=== PATIENT | female | born 1930 | race Caucasian/White ===

== ENCOUNTER 2016-12-05 21:03 | Emergency (ER) | payer MEDICARE, BC ==
[2016-12-05 21:15] VITALS: TEMP 97.4
[2016-12-05 21:23] LABS: Glucose,Whole Blood 98 mg/dL (75-99)
[2016-12-05] MEDS ORDERED: DIPH,PERTUS(ACELL)TETVAC-LF 0.5 ML VIAL IM ONE (21:31)
--- NOTE | 2016-12-05 21:37 | ED ---
Fall HPI - General Chief Complaint: Fall Stated Complaint: Fall/Head injury Time Seen by Provider: 12/05/16 21:14 Source: EMS, RN notes reviewed Mode of arrival: EMS - History of Present Illness Initial Comments: Patient is an 86-year-old woman brought to be evaluated after she had a fall. The patient reports that she was trying to do laundry and then thinks she may have tripped. She had a falling and striking the right side of her head and her right arm. The patient is denying pain. She denies dyspnea. She states that she feels well. Patient does not recall her last tetanus shot. Complaint: fall -: hour(s) Fall From: standing When Fall Occurred: 1-[address] Fall Occurred: [facility]pc/SNF Loss of Consciousness: none Prolonged Down Time?: no Symptoms Prior to Fall: none Location: head Location - Extremities: Right: Forearm Context: tripped/slipped Associated Symptoms: denies - Related Data Home Medications Medication Instructions Recorded Confirmed Unable To Assess [Unable to Assess] 12/05/16 12/05/16 Allergies Allergy/AdvReac Type Severity Reaction Status Date / Time No Known Allergies Allergy Verified 12/05/16 21:15 Review of Systems ROS Statement: Those systems with pertinent positive or pertinent negative responses have been documented in the HPI. ROS Other: All systems not noted in ROS Statement are negative. Constitutional: Denies: weakness Eyes: Denies: vision change ENT: Denies: ear pain, hearing loss, epistaxis Respiratory: Denies: cough, dyspnea Cardiovascular: Denies: chest pain, edema Gastrointestinal: Denies: abdominal pain, vomiting Musculoskeletal: Denies: back pain Skin: Denies: rash Neurological: Denies: headache, weakness, numbness, paresthesias Past Medical History Past Medical History: Unable to Obtain History of Any Multi-Drug Resistant Organisms: Unobtainable Past Surgical History: Unable to Obtain Past Psychological History: Unable to Obtain Smoking Status: Never smoker Past Alcohol Use History: None Reported Past Drug Use History: None Reported General Exam Limitations: altered mental status General appearance: alert, in no apparent distress Head exam: Present: normocephalic, other (Patient has contusion and abrasion to the right parietal scalp. No palpable deformity. Only minimal localized tenderness.) Eye exam: Present: normal appearance, PERRL, EOMI. Absent: scleral icterus, conjunctival injection, periorbital swelling, periorbital tenderness ENT exam: Present: normal oropharynx Neck exam: Present: normal inspection, full ROM. Absent: tenderness Respiratory exam: Present: normal lung sounds bilaterally. Absent: respiratory distress, wheezes, rales, rhonchi, stridor, chest wall tenderness Cardiovascular Exam: Present: regular rate, normal rhythm, normal heart sounds. Absent: systolic murmur, diastolic murmur, rubs, gallop GI/Abdominal exam: Present: soft. Absent: distended, tenderness, guarding Extremities exam: Present: full ROM, normal capillary refill, other (There is tenderness just proximal to the right wrist over the ulnar aspect. There is a small amount of soft tissue swelling. No obvious deformity.). Absent: tenderness, pedal edema Back exam: Absent: CVA tenderness (R), CVA tenderness (L), paraspinal tenderness , vertebral tenderness Neurological exam: Present: alert, oriented X3, CN II-XII intact. Absent: motor sensory deficit Skin exam: Present: warm, dry, intact, normal color. Absent: rash Course Vital Signs 12/05/16 12/05/16 12/05/16 21:10 21:49 22:39 Temperature 97.4 F L Pulse Rate 72 79 78 Respiratory 18 16 16 Rate Blood Pressure 144/62 152/65 173/74 O2 Sat by Pulse 92 L 99 98 Oximetry Medical Decision Making - Medical Decision Making This patient is an 86-year-old woman who had a trip and fall injury, which she workup reveals has caused small subarachnoid and subdural hemorrhages. The patient is still GCS of 15 and neurologic exam normal other than some probable underlying dementia. Discussed the findings with patient and her family, and they agree with transfer to facility that has available neurosurgical service. Case discussed with Dr. Ortega at [facility] who states that they can accept transfer. - Lab Data Result diagrams: 12/05/16 21:18 12/05/16 21:18 Lab Results 12/05/16 12/05/16 12/05/16 Range/Units 21:18 21:18 21:18 WBC 15.6 H (3.8-10.6) k/uL RBC 3.66 L (3.80-5.40) m/uL Hgb 11.5 (11.4-16.0) gm/dL Hct 34.3 (34.0-46.0) % MCV 93.6 (80.0-100.0) fL MCH 31.4 (25.0-35.0) pg MCHC 33.5 (31.0-37.0) g/dL RDW 12.3 (11.5-15.5) % Plt Count 267 (150-450) k/uL Neutrophils % 84 % Lymphocytes % 10 % Monocytes % 5 % Eosinophils % 1 % Basophils % 0 % Neutrophils # 13.2 H (1.3-7.7) k/uL Lymphocytes # 1.5 (1.0-4.8) k/uL Monocytes # 0.7 (0-1.0) k/uL Eosinophils # 0.1 (0-0.7) k/uL Basophils # 0.0 (0-0.2) k/uL PT 11.3 (9.0-12.0) sec INR 1.1 (<1.1) APTT 23.9 (22.0-30.0) sec Sodium 140 (137-145) mmol/L Potassium 3.9 (3.5-5.1) mmol/L Chloride 107 (98-107) mmol/L Carbon Dioxide 22 (22-30) mmol/L Anion Gap 11 mmol/L BUN 19 H (7-17) mg/dL Creatinine 0.90 (0.52-1.04) mg/dL Est GFR (MDRD) Af Amer >60 (>60 ml/min/1.73 sqM) Est GFR (MDRD) Non-Af 59 (>60 ml/min/1.73 sqM) Glucose 97 (74-99) mg/dL POC Glucose (mg/dL) (75-99) mg/dL POC Glu Marketing And Communications Officer ID Calcium 8.2 L (8.4-10.2) mg/dL 12/05/16 Range/Units 21:21 WBC (3.8-10.6) k/uL RBC (3.80-5.40) m/uL Hgb (11.4-16.0) gm/dL Hct (34.0-46.0) % MCV (80.0-100.0) fL MCH (25.0-35.0) pg MCHC (31.0-37.0) g/dL RDW (11.5-15.5) % Plt Count (150-450) k/uL Neutrophils % % Lymphocytes % % Monocytes % % Eosinophils % % Basophils % % Neutrophils # (1.3-7.7) k/uL Lymphocytes # (1.0-4.8) k/uL Monocytes # (0-1.0) k/uL Eosinophils # (0-0.7) k/uL Basophils # (0-0.2) k/uL PT (9.0-12.0) sec INR (<1.1) APTT (22.0-30.0) sec Sodium (137-145) mmol/L Potassium (3.5-5.1) mmol/L Chloride (98-107) mmol/L Carbon Dioxide (22-30) mmol/L Anion Gap mmol/L BUN (7-17) mg/dL Creatinine (0.52-1.04) mg/dL Est GFR (MDRD) Af Amer (>60 ml/min/1.73 sqM) Est GFR (MDRD) Non-Af (>60 ml/min/1.73 sqM) Glucose (74-99) mg/dL POC Glucose (mg/dL) 98 (75-99) mg/dL POC Glu Marketing And Communications Officer ID Diane Lennon A Calcium (8.4-10.2) mg/dL - EKG Data -: EKG Interpreted by Mi EKG shows normal: sinus rhythm (Rate 77 bpm), axis (Normal), intervals (Normal) , QRS complexes (Normal), ST-T waves (Normal) Rate: normal Interpretation: normal EKG Disposition Clinical Impression: Fall, Subarachnoid hemorrhage, Subdural hematoma, Fracture of distal end of ulna (alone), closed Disposition: OTHER INSTITUTION NOT DEFINED Condition: Serious Referrals: Dallas Dawkins MD [Primary Care Provider] - 1-2 days - Out of Hospital Transfer - Req. Specs Out of Hospital Transfer - Requested Specifics: Other Emergency Center
--- NOTE | 2016-12-05 22:24 | CT ---
EXAMINATION TYPE: CT brain wo con DATE OF EXAM: 12/05/2016 10:03 PM COMPARISON: NONE HISTORY: Fall today, right frontal injury. CT DLP: 964.70 mGycm Automated exposure control for dose reduction was used. FINDINGS: There is evidence of small right frontal temporal soft tissue scalp swelling or cephalohematoma witho ut depressive skull fracture. Small lucencies in the inner table of frontal bone on the left side in the axial image 38 is most lik mahamed related to prominent venous duval impression. The cortical sulci and ventricles are prominent with age-related atrophic changes with periventricula r white matter ischemic changes of the brain. There is evidence of focal area of increased density along the quadrigeminal plate cistern on the rig ht side in the axial image 18 and coronal image 37 with acute mild subarachnoid hemorrhage. There is also evidence of supratentorial hemorrhage on the right side as seen in the axial image 15. No significant midline shift or mass effect is noted at present. There is evidence of small subdural hematoma and subarachnoid hemorrhage in the right sylvian fissure area in the axial image 19 and coronal image 25. There is possibility of contusion changes of the cerebellum on the right side in the axial image 7 an d coronal image 46. Moderate cerebellar atrophy changes are noted. Postsurgical changes are noted in the bilateral eye globes. Air-fluid levels are noted with acute sinusitis changes involving bilateral maxillary sinuses. Mucosa l thickening is also noted in the ethmoid sinuses with chronic sinusitis changes. Right hearing aid is noted. Mucosal thickening is also noted in the sphenoid sinuses with chronic sin usitis changes. IMPRESSION: 1. Small cephalohematoma in the right frontal area without definite depressed skull fracture. 2. Small subarachnoid and subdural hemorrhage in the right temporal area in the right sylvian fissure area. 3. Multiple areas of subarachnoid hemorrhage involving quadrigeminal plate cistern area on the right side and right side of cerebellum and supratentorial hemorrhage on the right side and right cerebella r contusion. 4. Moderate cerebral atrophic changes with periventricular white matter ischemic changes. 5. Sinusitis changes. A phone report is given to Dr. Foster at the time of the dictation.
[2016-12-05 22:38] VITALS: RESP 16
--- NOTE | 2016-12-05 22:38 | XR ---
EXAMINATION TYPE: XR forearm RT DATE OF EXAM ORDERED: 12/05/2016 10:09 PM HISTORY: History of fall right distal forearm pain.. COMPARISON: None. FINDINGS: There is evidence of an acute slightly displaced fracture of neck of the distal right ulna with radial displacement of distal fracture fragment with surrounding soft tissue swelling. There is irregularity in the ulnar styloid process probably related to old fracture changes or degenerative c hanges. There is generalized osteopenia. 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 IMPRESSION: 1. ACUTE SLIGHTLY DISPLACED FRACTURE OF DISTAL RIGHT ULNA WITH SURROUNDING SOFT TISSUE SWELLING.
[2016-12-05 22:41] LABS: Basophils % (A) 0 %; CH 30.6; CHCM 32.9; Eosinophils # (A) 0.1 k/uL (0-0.7); Eosinophils % (A) 1 %; HCT 34.3 % (34.0-46.0); HDW 2.33; HGB 11.5 gm/dL (11.4-16.0); Luc % (Auto) 1; Lymphocytes # (A) 1.5 k/uL (1.0-4.8); Lymphocytes % (A) 10 %; MCH 31.4 pg (25.0-35.0); MCHC 33.5 g/dL (31.0-37.0); MCV 93.6 fL (80.0-100.0); Mean Platelet Volume 7.9; Monocytes # (A) 0.7 k/uL (0-1.0); Monocytes % (A) 5 %; Neutrophils # (A) 13.2 k/uL (1.3-7.7); Neutrophils % (A) 84 %; RBC 3.66 m/uL (3.80-5.40); RDW 12.3 % (11.5-15.5); WBC 15.6 k/uL (3.8-10.6); WBC (Perox) 15.67
[2016-12-05 22:45] LABS: Anion Gap 11 mmol/L; Blood Urea Nitrogen 19 mg/dL (7-17); Calcium 8.2 mg/dL (8.4-10.2); Carbon Dioxide 22 mmol/L (22-30); Chloride 107 mmol/L (98-107); Glucose 97 mg/dL (74-99); Non-African American GFR(MDRD) 59 (>60 ml/min/1.73 sqM); Potassium 3.9 mmol/L (3.5-5.1); Sodium 140 mmol/L (137-145)
[2016-12-05 22:48] LABS: INR 1.1 (<1.1); Partial Thromboplastin Time 23.9 sec (22.0-30.0); Prothrombin Time 11.3 sec (9.0-12.0)
[2016-12-05 23:08] LABS: Appearance,Urine Cloudy (Clear); Bacteria,Urine Many /hpf; Bilirubin,Urine Negative (Negative); Glucose,Urine (UA) Negative (Negative); Ketones,Urine Negative (Negative); Leukocyte Esterase,Urine Small (Negative); Mucus,Urine Rare /hpf; Nitrite,Urine Positive (Negative); PH, Urine 6.5 (5.0-8.0); Particle Count 52905; Protein,Urine Trace (Negative); RBC,Urine 11 /hpf (0-5); Specific Gravity,Urine 1.012 (1.001-1.035); UA Billing (MACRO vs. MICRO) MICRO; Urobilinogen,Urine <2.0 mg/dL (<2.0); WBC,Urine 15 /hpf (0-5)
[2016-12-05 23:58] VITALS: BP 169/76; PULSE 88
== END 2016-12-06 00:02 | disposition other institution (70) ==
LOC: EC 21:03
DX: S06.6X0A Traumatic subarachnoid hemorrhage without loss of consciousness, initial encounter (principal); S06.5X0A Traumatic subdural hemorrhage without loss of consciousness, initial encounter; S52.601A Unspecified fracture of lower end of right ulna, initial encounter for closed fracture; W01.10XA Fall on same level from slipping, tripping and stumbling with subsequent striking against unspecified object, initial encounter; Y93.E2 Activity, laundry; Y92.129 Unspecified place in nursing home as the place of occurrence of the external cause; Z23 Encounter for immunization; J32.9 Chronic sinusitis, unspecified; G31.9 Degenerative disease of nervous system, unspecified; M19.031 Primary osteoarthritis, right wrist; M85.88 Other specified disorders of bone density and structure, other site
CPT/HCPCS: 36415; 70450; 80048; 81001; 84484; 85025; 85610; 85730; 90471; 90715; 93005; 99285